=== PATIENT | female | born 1940 | race Caucasian/White ===

== ENCOUNTER 2021-03-13 18:35 | Emergency (ER) | payer OTHER, MEDICARE ==
[~2021-03-13] VITALS: Ht 160 cm; Wt 70.3 kg
[2021-03-13 20:35] VITALS: BP 155/89
== END 2021-03-13 20:35 | disposition home or self-care (01) ==
LOC: ER 18:35
DX: S01.81XA Laceration without foreign body of other part of head, initial encounter (principal); I10 Essential (primary) hypertension; E11.9 Type 2 diabetes mellitus without complications; M19.90 Unspecified osteoarthritis, unspecified site; E78.5 Hyperlipidemia, unspecified; K21.9 Gastro-esophageal reflux disease without esophagitis; Z98.890 Other specified postprocedural states; Z88.6 Allergy status to analgesic agent; Z88.2 Allergy status to sulfonamides; W17.89XA Other fall from one level to another, initial encounter; Y93.89 Activity, other specified; Y92.89 Other specified places as the place of occurrence of the external cause; Y99.8 Other external cause status

== ENCOUNTER 2021-03-20 13:53 | Emergency (ER) | payer OTHER, MEDICARE ==
[~2021-03-20] VITALS: Ht 160 cm; Wt 70.3 kg
[2021-03-20 13:55] VITALS: BP 172/80
== END 2021-03-20 14:35 | disposition home or self-care (01) ==
LOC: ER 13:53
DX: S01.81XD Laceration without foreign body of other part of head, subsequent encounter (principal); I10 Essential (primary) hypertension; E11.9 Type 2 diabetes mellitus without complications; M19.90 Unspecified osteoarthritis, unspecified site; E78.5 Hyperlipidemia, unspecified; K21.9 Gastro-esophageal reflux disease without esophagitis; Z88.5 Allergy status to narcotic agent; Z79.899 Other long term (current) drug therapy; Z88.2 Allergy status to sulfonamides; X58.XXXD Exposure to other specified factors, subsequent encounter